=== PATIENT | male | born 1975 | race Caucasian/White ===

== ENCOUNTER 2017-07-25 23:32 | Emergency (ER) | payer OTHER, MEDICAID ==
[~2017-07-25] VITALS: Ht 177.8 cm; Wt 100.0 kg
[~2017-07-25 23:32] MED LIST: ALBU8HFA IH; QUET300T2
[2017-07-26 02:19] VITALS: BP 124/76
== END 2017-07-26 02:22 | disposition home or self-care (01) ==
LOC: EMS 23:33
DX: T14.8 Other injury of unspecified body region (principal); B86 Scabies; J45.909 Unspecified asthma, uncomplicated; F17.210 Nicotine dependence, cigarettes, uncomplicated; W57.XXXA Bitten or stung by nonvenomous insect and other nonvenomous arthropods, initial encounter; Y93.89 Activity, other specified; Y92.89 Other specified places as the place of occurrence of the external cause; Y99.8 Other external cause status
CPT/HCPCS: 99282

== ENCOUNTER 2017-09-09 10:29 | Emergency (ER) | payer OTHER ==
[~2017-09-09] VITALS: Ht 167.6 cm; Wt 90.9 kg
[~2017-09-09 10:29] MED LIST changes: -QUET300T2; +QUET300T2 PO
[2017-09-09] MEDS ORDERED: LITH300CRT PO (10:34)
[2017-09-09] MEDS ORDERED: CefTRIAXone SODIUM 1 GM/VIAL IM ONE (11:00)
[2017-09-09] MEDS ORDERED: LIDOCAINE HCL/PF 1% 2 ML VIAL IM ONE (11:00)
[2017-09-09 12:23] VITALS: BP 147/83
== END 2017-09-09 12:30 | disposition home or self-care (01) ==
LOC: EMS 10:30
DX: L03.211 Cellulitis of face (principal); L02.01 Cutaneous abscess of face; J45.909 Unspecified asthma, uncomplicated; F17.210 Nicotine dependence, cigarettes, uncomplicated
CPT/HCPCS: 96372; 99283; J0696; J3490

== ENCOUNTER 2020-03-23 02:22 | Emergency (ER) | payer OTHER ==
[~2020-03-23 02:22] MED LIST changes: +LITH300CRT PO
== END 2020-03-23 03:19 | disposition left against medical advice (07) ==
LOC: EMS 02:22
DX: M79.672 Pain in left foot (principal); M79.671 Pain in right foot; Z53.21 Procedure and treatment not carried out due to patient leaving prior to being seen by health care provider

== ENCOUNTER 2020-12-23 18:54 | Emergency (ER) | payer OTHER ==
[~2020-12-23] VITALS: Ht 177.8 cm; Wt 127.3 kg
[2020-12-23] MEDS ORDERED: SERT-158 PO (19:01)
[2020-12-23 21:46] LABS: BASOPHILS % (AUTO) 0.7 % (0.0-2.0); EOSINOPHILS % (AUTO) 3.9 % (1.0-6.0); HEMATOCRIT 41.6 % (41-53); HEMOGLOBIN 13.9 g/dL (13.5-17.5); LYMPHOCYTES # (AUTO) 1.1 K/uL (1.0-4.8); LYMPHOCYTES % (AUTO) 21.4 % (22.0-44.0); MEAN CORPUSCULAR HEMOGLOBIN 31.1 pg (26.0-34.0); MEAN CORPUSCULAR HGB CONC 33.3 G/dL (31.0-37.0); MEAN CORPUSCULAR VOLUME 93 fL (80-100); MONOCYTES # (AUTO) 0.5 K/uL (0.1-1.0); MONOCYTES % (AUTO) 9.4 % (2.0-9.0); NEUTROPHILS # (AUTO) 3.2 K/uL (1.8-7.7); NEUTROPHILS % (AUTO) 64.6 % (40.0-70.0); RED BLOOD CELL COUNT(AUTO) 4.46 MIL/uL (4.50-5.90); RED CELL DISTRIBUTION WIDTH 14.6 % (11.5-14.5)
[2020-12-23 21:54] LABS: ANION GAP 8 mmol/L (8-16); CALCIUM, TOTAL 9.6 mg/dL (8.8-10.5); CARBON DIOXIDE 29 mmol/L (22-29); CHLORIDE 105 mmol/L (98-107); CREATININE 0.65 mg/dL (0.60-1.30); GLOMERULAR FILTR. RATE CALC > 60 mL/min (>60); GLUCOSE,RANDOM 98 mg/dL (70-110); POTASSIUM 4.1 mmol/L (3.5-5.1); SODIUM SERUM 142 mmol/L (136-145); UREA NITROGEN, BLOOD 8 mg/dL (7-18)
[2020-12-23 22:00] LABS: ALANINE AMINOTRANSFERASE 113 U/L (12-78); ALBUMIN 3.5 g/dL (3.4-5.0); ALKALINE PHOSPHATASE 100 U/L (46-116); ASPARTATE AMINOTRANSFERASE 170 U/L (15-37); BILIRUBIN,TOTAL 0.7 mg/dL (0.1-1.0); LIPASE 360 U/L (73-393); TOTAL PROTEIN, SERUM 7.7 g/dL (6.4-8.2)
[2020-12-23 22:28] LABS: AMPHET/METH SCREEN,URINE POSITIVE (NEGATIVE); APPEARANCE,URINE CLEAR (CLEAR); BARBITURATE SCREEN, URINE NEGATIVE (NEGATIVE); BENZODIAZEPINES SCREEN,URINE NEGATIVE (NEGATIVE); BILIRUBIN,URINE NEGATIVE (NEGATIVE); CANNABINOID SCREEN,URINE NEGATIVE (NEGATIVE); COCAINE SCREEN,URINE NEGATIVE (NEGATIVE); GLUCOSE, URINE (UA) NEGATIVE (NEGATIVE); KETONES,URINE NEGATIVE (NEGATIVE); LEUKOCYTE ESTERASE ,URINE NEGATIVE (NEGATIVE); METHADONE SCREEN, URINE NEGATIVE (NEGATIVE); NITRATE,URINE NEGATIVE (NEGATIVE); OCCULT BLOOD,URINE NEGATIVE (NEGATIVE); OPIATE SCREEN,URINE NEGATIVE (NEGATIVE); PROTEIN,URINE NEGATIVE (NEGATIVE); UROBILINOGEN,URINE 0.2 mg/dL (<=1.0)
[2020-12-23 22:31] LABS: PHENCYCLIDINE SCREEN,URINE NEGATIVE (NEGATIVE)
[2020-12-23 22:40] VITALS: BP 140/70
[2020-12-23 22:40] LABS: PLATELET COUNT (AUTO) 86 K/uL (150-450)
[2020-12-23 22:43] LABS: LITHIUM < 0.20 mmol/L (0.60-1.20)
== END 2020-12-23 22:50 | disposition home or self-care (01) ==
LOC: EMS 18:54
DX: M79.10 Myalgia, unspecified site (principal); R11.2 Nausea with vomiting, unspecified; R74.8 Abnormal levels of other serum enzymes; R19.7 Diarrhea, unspecified; F41.9 Anxiety disorder, unspecified; J45.909 Unspecified asthma, uncomplicated; F17.210 Nicotine dependence, cigarettes, uncomplicated; F12.90 Cannabis use, unspecified, uncomplicated; F19.90 Other psychoactive substance use, unspecified, uncomplicated
CPT/HCPCS: 99283

== ENCOUNTER 2021-10-05 03:28 | Emergency (ER) | payer OTHER ==
[~2021-10-05] VITALS: Ht 175.3 cm; Wt 108.6 kg
[~2021-10-05 03:28] MED LIST changes: +SERT-158 PO
[2021-10-05] MEDS ORDERED: LORazepam 1 MG TABLET PO ONE (03:45)
[2021-10-05] MEDS ORDERED: DiphenhydrAMINE HCL 50 MG CAPSULE PO ONE (03:45)
[2021-10-05 04:12] LABS: COVID AG,FIA SOURCE NASOPHARYNGEAL
[2021-10-05] MEDS ORDERED: ALBUTEROL SULFATE HFA 90 MCG/PUFF 8 GM INHALER IH ONE (04:15)
[2021-10-05 05:17] VITALS: BP 157/94
== END 2021-10-05 05:19 | disposition home or self-care (01) ==
LOC: EMS 03:28
DX: J45.909 Unspecified asthma, uncomplicated (principal); R20.2 Paresthesia of skin; F15.10 Other stimulant abuse, uncomplicated; F32.9 Major depressive disorder, single episode, unspecified; Z79.899 Other long term (current) drug therapy; Z20.822 Contact with and (suspected) exposure to COVID-19
CPT/HCPCS: 71045; 94640; 99284; J3535

== ENCOUNTER 2021-11-26 19:00 | Inpatient (IN) | payer MEDICARE, MEDICAID ==
[~2021-11-26] VITALS: Ht 175.3 cm; Wt 101.9 kg
[2021-11-27 00:29] LABS: ANION GAP 10 mmol/L (8-16); CALCIUM, TOTAL 9.2 mg/dL (8.8-10.5); CARBON DIOXIDE 27 mmol/L (22-29); CHLORIDE 105 mmol/L (98-107); CREATININE 0.67 mg/dL (0.60-1.30); GLOMERULAR FILTR. RATE CALC > 60 mL/min (>60); GLUCOSE,RANDOM 103 mg/dL (70-110); POTASSIUM 3.6 mmol/L (3.5-5.1); SODIUM SERUM 142 mmol/L (136-145); UREA NITROGEN, BLOOD 5 mg/dL (7-18)
[2021-11-27 00:42] LABS: ALANINE AMINOTRANSFERASE 61 U/L (12-78); ALBUMIN 3.5 g/dL (3.4-5.0); ALKALINE PHOSPHATASE 145 U/L (46-116); ASPARTATE AMINOTRANSFERASE 99 U/L (15-37); BILIRUBIN,TOTAL 0.8 mg/dL (0.1-1.0); TOTAL PROTEIN, SERUM 8.1 g/dL (6.4-8.2)
[2021-11-27 00:43] LABS: ACETAMINOPHEN < 2 mcg/mL (10-30)
[2021-11-27 00:46] LABS: LITHIUM < 0.20 mmol/L (0.60-1.20)
[2021-11-27 00:52] LABS: SALICYLATE 2.8 mg/dL (2.8-20.0)
[2021-11-27 01:25] LABS: COVID AG,FIA SOURCE NASOPHARYNGEAL
[2021-11-27 01:56] LABS: BASOPHILS % (AUTO) 0.7 % (0.0-2.0); EOSINOPHILS % (AUTO) 1.4 % (1.0-6.0); HEMATOCRIT 43.8 % (41-53); HEMOGLOBIN 14.9 g/dL (13.5-17.5); LYMPHOCYTES # (AUTO) 1.8 K/uL (1.0-4.8); LYMPHOCYTES % (AUTO) 51.4 % (22.0-44.0); MEAN CORPUSCULAR HEMOGLOBIN 30.6 pg (26.0-34.0); MEAN CORPUSCULAR VOLUME 90 fL (80-100); MONOCYTES # (AUTO) 0.3 K/uL (0.1-1.0); MONOCYTES % (AUTO) 8.3 % (2.0-9.0); NEUTROPHILS # (AUTO) 1.3 K/uL (1.8-7.7); NEUTROPHILS % (AUTO) 38.2 % (40.0-70.0); RED BLOOD CELL COUNT(AUTO) 4.85 MIL/uL (4.50-5.90); RED CELL DISTRIBUTION WIDTH 14.3 % (11.5-14.5)
[2021-11-27 02:39] LABS: PLATELET COUNT (AUTO) 89 K/uL (150-450)
[2021-11-27 22:06] LABS: AMPHET/METH SCREEN,URINE POSITIVE (NEGATIVE); BARBITURATE SCREEN, URINE NEGATIVE (NEGATIVE); BENZODIAZEPINES SCREEN,URINE NEGATIVE (NEGATIVE); CANNABINOID SCREEN,URINE POSITIVE (NEGATIVE); COCAINE SCREEN,URINE NEGATIVE (NEGATIVE); METHADONE SCREEN, URINE NEGATIVE (NEGATIVE); OPIATE SCREEN,URINE NEGATIVE (NEGATIVE)
[2021-11-27 22:28] LABS: PHENCYCLIDINE SCREEN,URINE NEGATIVE (NEGATIVE)
[2021-11-28 01:17] LABS: CHOL/HDL RATIO 2.8 (4.2-7.3); CHOLESTEROL 167 mg/dL (131-200); HDL CHOLESTEROL 59 mg/dL (40-60); LDL CHOL (CALC.) 85 mg/dL (0-130); TRIGLYCERIDES 115 mg/dL (15-150)
[2021-11-28] MEDS: HALOPERIDOL 5 MG TABLET PO PRN (19:11)
[2021-11-28] MEDS: ZOLPIDEM TARTRATE 10 MG TABLET PO PRN (19:11)
[2021-11-28] MEDS: LORazepam 2 MG TABLET PO PRN (19:11)
[2021-11-29 13:07] VITALS: BP 118/78
[2021-11-29] MEDS ORDERED: INFLUENZA VIRUS VACCINE QVS 2021-22 (6MO+)/PF 60 MCG/0.5 ML SYRINGE IM. ONE (13:45)
[2021-11-29 16:00] VITALS: BP 107/66
[2021-11-29] MEDS: HALOPERIDOL 5 MG TABLET PO PRN (19:38)
[2021-11-29] MEDS: ZOLPIDEM TARTRATE 10 MG TABLET PO PRN (20:38)
[2021-11-29] MEDS: QUEtiapine FUMARATE 200 MG TABLET PO SCH (22:06)
[2021-11-29] MEDS ORDERED: BACITRACIN 28 GM OINTMENT TP PRN (22:30)
[2021-11-29] MEDS ORDERED: DOCUSATE SODIUM 100 MG CAPSULE PO PRN (22:30)
[2021-11-29] MEDS ORDERED: MAG HYDROX/AL HYDROX/SIMETH ES 30 ML SUSPENSION UDCUP PO PRN (22:30)
[2021-11-29] MEDS ORDERED: ONDANSETRON HCL 4 MG TABLET PO PRN (22:30)
[2021-11-29] MEDS ORDERED: OMEPRAZOLE 20 MG CAPSULE PO PRN (22:30)
[2021-11-29] MEDS ORDERED: ALBUTEROL SULFATE HFA 90 MCG/PUFF 8 GM INHALER IH PRN (22:30)
[2021-11-29] MEDS ORDERED: PETROLATUM,WHITE 28 GM JELLY TP PRN (22:30)
[2021-11-29] MEDS ORDERED: BENZOCAINE/MENTHOL LOZENGE PO PRN (22:30)
[2021-11-29] MEDS ORDERED: CloNIDine HCL 0.1 MG TABLET PO PRN (22:30)
[2021-11-29] MEDS ORDERED: MAGNESIUM HYDROXIDE SUSPENSION 30 ML UDCUP PO PRN (22:30)
[2021-11-30] MEDS: QUEtiapine FUMARATE 200 MG TABLET PO SCH ×2 (08:42→16:35)
[2021-11-30 11:17] VITALS: BP 90/43
[2021-11-30 16:44] VITALS: BP 104/74
[2021-12-01 02:09] VITALS: BP 114/79
[2021-12-01] MEDS: ZOLPIDEM TARTRATE 10 MG TABLET PO PRN ×2 (02:09→20:55)
[2021-12-01] MEDS: QUEtiapine FUMARATE 200 MG TABLET PO SCH ×2 (08:32→17:27)
[2021-12-01 09:32] VITALS: BP 110/60
[2021-12-01 17:44] VITALS: BP 118/72
[2021-12-02 02:32] VITALS: BP 121/77
[2021-12-02 08:07] VITALS: BP 117/74
[2021-12-02] MEDS: QUEtiapine FUMARATE 200 MG TABLET PO SCH ×2 (08:32→16:18)
[2021-12-02 17:00] VITALS: BP 111/79
[2021-12-02] MEDS: ZOLPIDEM TARTRATE 10 MG TABLET PO PRN (22:53)
[2021-12-03] MEDS: QUEtiapine FUMARATE 200 MG TABLET PO SCH ×2 (08:24→16:04)
[2021-12-03 09:00] VITALS: BP 136/62
[2021-12-03 16:24] VITALS: BP 116/69
[2021-12-03 17:40] LABS: COVID AG,FIA SOURCE NASAL SWAB
[2021-12-03] MEDS: ZOLPIDEM TARTRATE 10 MG TABLET PO PRN (21:55)
[2021-12-03] MEDS: ACETAMINOPHEN 325 MG TABLET PO PRN (21:58)
[2021-12-04 08:15] VITALS: BP 119/66
[2021-12-04] MEDS: QUEtiapine FUMARATE 200 MG TABLET PO SCH ×2 (08:25→16:26)
[2021-12-04 16:48] VITALS: BP 109/70
[2021-12-04] MEDS: ZOLPIDEM TARTRATE 10 MG TABLET PO PRN (22:19)
[2021-12-04 22:20] VITALS: BP 112/68
[2021-12-04] MEDS: ACETAMINOPHEN 325 MG TABLET PO PRN (22:20)
[2021-12-04 23:20] VITALS: BP 115/70
[2021-12-05] MEDS: QUEtiapine FUMARATE 200 MG TABLET PO SCH ×2 (08:55→16:47)
[2021-12-05 09:00] VITALS: BP 123/72
[2021-12-05 14:35] VITALS: BP 128/72
[2021-12-05] MEDS: ACETAMINOPHEN 325 MG TABLET PO PRN ×2 (14:35→19:58)
[2021-12-05 16:00] VITALS: BP 122/74
[2021-12-05] MEDS: ZOLPIDEM TARTRATE 10 MG TABLET PO PRN (22:46)
[2021-12-06 00:30] VITALS: BP 107/68
[2021-12-06 08:03] VITALS: BP 109/58
[2021-12-06] MEDS: QUEtiapine FUMARATE 200 MG TABLET PO SCH ×2 (08:12→17:17)
[2021-12-06 17:55] VITALS: BP 140/75
[2021-12-06] MEDS: ZOLPIDEM TARTRATE 10 MG TABLET PO PRN (20:34)
[2021-12-07 02:28] VITALS: BP 110/62
[2021-12-07 03:34] VITALS: BP 121/64
[2021-12-07] MEDS: LORazepam 2 MG TABLET PO PRN (03:34)
[2021-12-07] MEDS: HALOPERIDOL 5 MG TABLET PO PRN (03:34)
[2021-12-07] MEDS: QUEtiapine FUMARATE 200 MG TABLET PO SCH (08:34)
[2021-12-07 11:38] VITALS: BP 105/56
[2021-12-07 16:00] VITALS: BP 105/63
[2021-12-07] MEDS ORDERED: QUEtiapine FUMARATE 200 MG TABLET PO SCH (21:00)
[2021-12-08 00:15] VITALS: BP 119/60
[2021-12-08] MEDS: LOPERAMIDE HCL 2 MG CAPSULE PO PRN ×2 (07:54→10:30)
[2021-12-08 09:00] VITALS: BP 106/60
[2021-12-08 17:00] VITALS: BP 131/77
[2021-12-08] MEDS: QUEtiapine FUMARATE 200 MG TABLET PO SCH (19:59)
[2021-12-08 23:47] LABS: COVID AG,FIA SOURCE NASAL SWAB
[2021-12-09 01:00] VITALS: BP 135/78
[2021-12-09] MEDS: IBUPROFEN 600 MG TABLET PO PRN ×2 (09:03→19:28)
[2021-12-09 09:06] VITALS: BP 109/55
[2021-12-09 10:04] VITALS: BP 114/63
[2021-12-09 16:46] VITALS: BP 111/76
[2021-12-09 19:28] VITALS: BP 137/76
[2021-12-09] MEDS: HALOPERIDOL 5 MG TABLET PO PRN (19:28)
[2021-12-09] MEDS: QUEtiapine FUMARATE 200 MG TABLET PO SCH (20:36)
[2021-12-10 02:32] VITALS: BP 145/80
[2021-12-10 08:00] VITALS: BP 107/60
[2021-12-10] MEDS: LORazepam 2 MG TABLET PO PRN (16:15)
[2021-12-10 16:28] VITALS: BP 98/60
[2021-12-10] MEDS: QUEtiapine FUMARATE 200 MG TABLET PO SCH (20:21)
[2021-12-10] MEDS: HALOPERIDOL 5 MG TABLET PO PRN (20:22)
[2021-12-11 10:45] VITALS: BP 145/68
[2021-12-11 16:32] VITALS: BP 140/91
[2021-12-11] MEDS: QUEtiapine FUMARATE 200 MG TABLET PO SCH (20:15)
[2021-12-11] MEDS: HALOPERIDOL 5 MG TABLET PO PRN (20:15)
[2021-12-12 08:02] VITALS: BP 111/67
[2021-12-12 13:50] VITALS: BP 122/72
[2021-12-12] MEDS: IBUPROFEN 600 MG TABLET PO PRN (13:50)
[2021-12-12 16:00] VITALS: BP 115/67
[2021-12-12] MEDS: LORazepam 2 MG TABLET PO PRN (19:30)
[2021-12-12] MEDS: QUEtiapine FUMARATE 200 MG TABLET PO SCH (20:16)
[2021-12-12] MEDS: HALOPERIDOL 5 MG TABLET PO PRN (20:16)
[2021-12-13 09:30] VITALS: BP 106/58
[2021-12-13] MEDS: IBUPROFEN 600 MG TABLET PO PRN (14:31)
[2021-12-13] MEDS: LORazepam 2 MG TABLET PO PRN ×2 (14:31→20:22)
[2021-12-13 14:33] VITALS: BP 110/76
[2021-12-13 16:44] VITALS: BP 102/72
[2021-12-13] MEDS: QUEtiapine FUMARATE 200 MG TABLET PO SCH (20:15)
[2021-12-13] MEDS: HALOPERIDOL 5 MG TABLET PO PRN (20:23)
[2021-12-14 08:02] VITALS: BP 96/55
[2021-12-14 16:00] VITALS: BP 121/70
[2021-12-14] MEDS: LORazepam 2 MG TABLET PO PRN ×2 (16:16→20:11)
[2021-12-14] MEDS: QUEtiapine FUMARATE 200 MG TABLET PO SCH (20:11)
[2021-12-14] MEDS: HALOPERIDOL 5 MG TABLET PO PRN (20:13)
[2021-12-15 09:20] VITALS: BP 99/54
[2021-12-15] MEDS: HALOPERIDOL 5 MG TABLET PO PRN ×2 (12:54→19:44)
[2021-12-15 16:34] VITALS: BP 105/72
[2021-12-15] MEDS: IBUPROFEN 600 MG TABLET PO PRN (17:18)
[2021-12-15] MEDS: LORazepam 2 MG TABLET PO PRN (19:44)
[2021-12-15] MEDS: ACETAMINOPHEN 325 MG TABLET PO PRN (19:44)
[2021-12-15] MEDS ORDERED: BENZOCAINE 10% 7 GM GEL TP PRN (20:00)
[2021-12-15] MEDS: QUEtiapine FUMARATE 200 MG TABLET PO SCH (20:04)
[2021-12-15] MEDS: MAGNESIUM SULFATE 454 GM BOX PO SCH (20:28)
[2021-12-16 05:20] VITALS: BP 127/85
[2021-12-16] MEDS: IBUPROFEN 600 MG TABLET PO PRN (05:23)
[2021-12-16 08:00] VITALS: BP 115/57
[2021-12-16] MEDS: MAGNESIUM SULFATE 454 GM BOX PO SCH ×2 (09:32→12:35)
[2021-12-16 10:47] LABS: COVID AG,FIA SOURCE NASOPHARYNGEAL
[2021-12-16] MEDS ORDERED: QUET200T30 PO (13:04)
== END 2021-12-16 15:00 | disposition home or self-care (01) | DRG 885 ==
LOC: EMS 19:05 → 3EX 11-29 12:24 → 3EI 12-13 11:19
PROVIDERS: ADMIT Psychiatry & Neurology Psychiatry; ATTEND Psychiatry & Neurology Psychiatry
DX: F32.2 Major depressive disorder, single episode, severe without psychotic features (principal); R45.851 Suicidal ideations; F25.9 Schizoaffective disorder, unspecified; F15.10 Other stimulant abuse, uncomplicated; Z20.822 Contact with and (suspected) exposure to COVID-19; T50.902A Poisoning by unspecified drugs, medicaments and biological substances, intentional self-harm, initial encounter; F10.10 Alcohol abuse, uncomplicated; G47.00 Insomnia, unspecified; K59.00 Constipation, unspecified; E78.5 Hyperlipidemia, unspecified; I10 Essential (primary) hypertension; J44.9 Chronic obstructive pulmonary disease, unspecified; F41.9 Anxiety disorder, unspecified; Z79.899 Other long term (current) drug therapy; Y92.89 Other specified places as the place of occurrence of the external cause; Z71.51 Drug abuse counseling and surveillance of drug abuser; Z71.6 Tobacco abuse counseling; Z72.0 Tobacco use
CPT/HCPCS: 80053; 80061; 80178; 83735; 85025; 87081; 99285; G0378; G0480; G0481; J3535

== ENCOUNTER 2022-02-14 15:39 | Inpatient (IN) | payer MEDICARE, MEDICAID ==
[~2022-02-14] VITALS: Ht 175.3 cm; Wt 105.2 kg
[~2022-02-14 15:39] MED LIST changes: -ALBU8HFA IH; -LITH300CRT PO; +QUET200T30 PO; -QUET300T2 PO; -SERT-158 PO
[2022-02-14] MEDS ORDERED: LORazepam 2 MG TABLET PO PRN (17:30)
[2022-02-14] MEDS ORDERED: OLANZapine 5 MG RAPDIS TABLET PO PRN (17:30)
[2022-02-14] MEDS ORDERED: ZOLPIDEM TARTRATE 10 MG TABLET PO PRN (17:30)
[2022-02-14 17:53] LABS: BASOPHILS % (AUTO) 0.5 % (0.0-2.0); EOSINOPHILS % (AUTO) 1.1 % (1.0-6.0); HEMATOCRIT 44.4 % (41-53); HEMOGLOBIN 15.1 g/dL (13.5-17.5); LYMPHOCYTES % (AUTO) 42.9 % (22.0-44.0); MEAN CORPUSCULAR HEMOGLOBIN 29.9 pg (26.0-34.0); MEAN CORPUSCULAR HGB CONC 34.1 G/dL (31.0-37.0); MEAN CORPUSCULAR VOLUME 88 fL (80-100); MONOCYTES # (AUTO) 0.4 K/uL (0.1-1.0); MONOCYTES % (AUTO) 6.3 % (2.0-9.0); NEUTROPHILS # (AUTO) 3.4 K/uL (1.8-7.7); NEUTROPHILS % (AUTO) 49.2 % (40.0-70.0); PLATELET COUNT (AUTO) 101 K/uL (150-450); RED BLOOD CELL COUNT(AUTO) 5.06 MIL/uL (4.50-5.90); RED CELL DISTRIBUTION WIDTH 15.9 % (11.5-14.5)
[2022-02-14 17:56] LABS: COVID AG,FIA SOURCE NASAL SWAB
[2022-02-14 18:10] LABS: ANION GAP 9 mmol/L (8-16); CARBON DIOXIDE 31 mmol/L (22-29); CHLORIDE 103 mmol/L (98-107); CREATININE 0.67 mg/dL (0.60-1.30); GLOMERULAR FILTR. RATE CALC > 60 mL/min (>60); GLUCOSE,RANDOM 108 mg/dL (70-110); POTASSIUM 3.6 mmol/L (3.5-5.1); SODIUM SERUM 143 mmol/L (136-145); UREA NITROGEN, BLOOD 8 mg/dL (7-18)
[2022-02-14 18:16] LABS: ALANINE AMINOTRANSFERASE 62 U/L (12-78); ALBUMIN 4.2 g/dL (3.4-5.0); ALKALINE PHOSPHATASE 146 U/L (46-116); ASPARTATE AMINOTRANSFERASE 106 U/L (15-37); BILIRUBIN,TOTAL 0.9 mg/dL (0.1-1.0)
[2022-02-15] VITALS (8 sets, daily range): BP systolic 123–154; BP diastolic 41–83
[2022-02-15] MEDS ORDERED: SODIUM CHLORIDE 0.9% 1,000 ML IV ONE (04:30)
[2022-02-15] MEDS ORDERED: HydrOXYzine PAMOATE 50 MG CAPSULE PO PRN (09:15)
[2022-02-15] MEDS ORDERED: ACETAMINOPHEN 325 MG TABLET PO PRN (09:15)
[2022-02-15] MEDS ORDERED: PROMETHAZINE HCL 25 MG TABLET PO PRN (09:15)
[2022-02-15] MEDS ORDERED: MAGNESIUM HYDROXIDE SUSPENSION 30 ML UDCUP PO PRN (09:15)
[2022-02-15] MEDS ORDERED: LORazepam 2 MG TABLET PO ONE (09:15)
[2022-02-15] MEDS ORDERED: QUEtiapine FUMARATE 100 MG TABLET PO PRN (09:15)
[2022-02-15] MEDS ORDERED: LOPERAMIDE HCL 2 MG CAPSULE PO PRN ×2 (09:15)
[2022-02-15] MEDS ORDERED: MAG HYDROX/AL HYDROX/SIMETH ES 30 ML SUSPENSION UDCUP PO PRN (09:15)
[2022-02-15] MEDS ORDERED: GuaiFENesin/D-METHORPHAN [SUGAR-FREE] 200-20MG/10 ML SYRUP UDCUP PO PRN (09:15)
[2022-02-15] MEDS ORDERED: TUBERCULIN, PURIFIED PROTEIN DERIVATIVE 5 TU/0.1 ML SYRINGE ID ONE (09:15)
[2022-02-15] MEDS ORDERED: CYANOCOBALAMIN 1,000 MCG/ML VIAL IM ONE (09:15)
[2022-02-15] MEDS ORDERED: LORazepam 2 MG TABLET PO PRN (09:15)
[2022-02-15] MEDS: THIAMINE 100 MG TABLET PO SCH (16:14)
[2022-02-15] MEDS: QUEtiapine FUMARATE 100 MG TABLET PO SCH (20:11)
[2022-02-15] MEDS: MELATONIN 5 MG TABLET PO SCH (20:11)
[2022-02-16] MEDS ORDERED: LORazepam 2 MG TABLET PO PRN (07:00)
[2022-02-16 07:41] LABS: CHOL/HDL RATIO 2.3 (4.2-7.3); FREE T4 (FREE THYROXINE) 0.7 ng/dL (0.76-1.46); THYROID STIMULATING HORMONE 0.5 uIU/mL (0.36-3.74)
[2022-02-16 07:44] LABS: HEMOGLOBIN A1C 5.3 % (3.8-5.6)
[2022-02-16 08:07] LABS: HEPATITIS C AB (EIA) <0.1 s/co ratio (0.0-0.9)
[2022-02-16 09:00] VITALS: BP 137/101
[2022-02-16] MEDS: MULTIVITAMINS WITH MINERALS, THERAPEUTIC TABLET PO SCH (09:57)
[2022-02-16] MEDS: LORazepam 2 MG TABLET PO SCH ×4 (09:58→20:46)
[2022-02-16] MEDS: THIAMINE 100 MG TABLET PO SCH ×2 (09:58→16:19)
[2022-02-16] MEDS: OMEGA-3/DHA/EPA/FISH OIL 1,000 MG CAPSULE PO SCH (09:58)
[2022-02-16] MEDS: FOLIC ACID 1 MG TABLET PO SCH (09:59)
[2022-02-16] MEDS: NALTREXONE HCL 50 MG TABLET PO SCH (09:59)
[2022-02-16 11:35] VITALS: BP 134/75
[2022-02-16 13:12] VITALS: BP 134/75
[2022-02-16 13:18] VITALS: BP 134/73
[2022-02-16] MEDS ORDERED: CloNIDine HCL 0.1 MG TABLET PO PRN (13:30)
[2022-02-16 17:20] VITALS: BP 119/70
[2022-02-16] MEDS: MELATONIN 5 MG TABLET PO SCH (20:45)
[2022-02-16] MEDS: QUEtiapine FUMARATE 100 MG TABLET PO SCH (20:46)
[2022-02-16 21:39] VITALS: BP 117/61
[2022-02-17] MEDS: MULTIVITAMINS WITH MINERALS, THERAPEUTIC TABLET PO SCH (08:47)
[2022-02-17] MEDS: OMEGA-3/DHA/EPA/FISH OIL 1,000 MG CAPSULE PO SCH (08:47)
[2022-02-17] MEDS: LORazepam 2 MG TABLET PO SCH ×4 (08:47→20:27)
[2022-02-17] MEDS: NALTREXONE HCL 50 MG TABLET PO SCH (08:48)
[2022-02-17] MEDS: FOLIC ACID 1 MG TABLET PO SCH (08:48)
[2022-02-17 08:53] VITALS: BP 114/70
[2022-02-17] MEDS ORDERED: DULoxetine HCL 20 MG CAPSULE PO SCH (09:00)
[2022-02-17 09:14] VITALS: BP 114/70
[2022-02-17] MEDS: THIAMINE 100 MG TABLET PO SCH ×2 (09:31→16:19)
[2022-02-17 13:14] VITALS: BP 120/76
[2022-02-17 16:09] VITALS: BP 143/76
[2022-02-17] MEDS ORDERED: NALT50TA PO (16:13)
[2022-02-17] MEDS ORDERED: MELA5TAB40 PO (16:13)
[2022-02-17] MEDS ORDERED: QUET100T34 PO (16:13)
[2022-02-17] MEDS ORDERED: DULO20CA71 PO (16:13)
[2022-02-17] MEDS ORDERED: OMEG-108 PO (16:13)
[2022-02-17 17:15] VITALS: BP 143/76
[2022-02-17 20:26] VITALS: BP 146/95
[2022-02-17] MEDS: QUEtiapine FUMARATE 100 MG TABLET PO SCH (20:27)
[2022-02-17] MEDS: MELATONIN 5 MG TABLET PO SCH (20:27)
[2022-02-18] MEDS ORDERED: LORazepam 1 MG TABLET PO PRN (07:00)
[2022-02-18] MEDS: OMEGA-3/DHA/EPA/FISH OIL 1,000 MG CAPSULE PO SCH (08:22)
[2022-02-18] MEDS: NALTREXONE HCL 50 MG TABLET PO SCH (08:22)
[2022-02-18] MEDS: MULTIVITAMINS WITH MINERALS, THERAPEUTIC TABLET PO SCH (08:23)
[2022-02-18] MEDS: FOLIC ACID 1 MG TABLET PO SCH (08:23)
[2022-02-18] MEDS: THIAMINE 100 MG TABLET PO SCH (08:23)
[2022-02-18] MEDS: LORazepam 1 MG TABLET PO SCH ×2 (08:24→12:25)
[2022-02-18 08:30] VITALS: BP 117/70
[2022-02-18 09:00] VITALS: BP 117/70
[2022-02-18] MEDS ORDERED: DULoxetine HCL 30 MG CAPSULE PO SCH (09:00)
[2022-02-19] MEDS ORDERED: LORazepam 1 MG TABLET PO PRN (07:00)
== END 2022-02-18 15:15 | disposition home or self-care (01) | DRG 885 ==
LOC: EMS 15:39 → 3EX 02-15 06:23
PROVIDERS: ADMIT Psychiatry & Neurology Psychiatry; ATTEND Psychiatry & Neurology Psychiatry
DX: F32.2 Major depressive disorder, single episode, severe without psychotic features (principal); R45.851 Suicidal ideations; Z20.822 Contact with and (suspected) exposure to COVID-19; E11.9 Type 2 diabetes mellitus without complications; E78.00 Pure hypercholesterolemia, unspecified; E78.5 Hyperlipidemia, unspecified; F10.10 Alcohol abuse, uncomplicated; F20.9 Schizophrenia, unspecified; I10 Essential (primary) hypertension; F17.210 Nicotine dependence, cigarettes, uncomplicated; J44.9 Chronic obstructive pulmonary disease, unspecified; K70.10 Alcoholic hepatitis without ascites; Y90.8 Blood alcohol level of 240 mg/100 ml or more; Z55.9 Problems related to education and literacy, unspecified; Z59.9 Problem related to housing and economic circumstances, unspecified; Z63.9 Problem related to primary support group, unspecified; Z65.3 Problems related to other legal circumstances; Z91.14 Patient's other noncompliance with medication regimen
CPT/HCPCS: 80053; 80061; 80074; 83036; 84439; 84443; 85025; 86592; 93005; 99285; G0378; G0480; J3420; Q9967

== ENCOUNTER 2023-04-28 01:21 | Emergency (ER) | payer OTHER ==
[~2023-04-28] VITALS: Ht 175.3 cm; Wt 109.0 kg
[~2023-04-28 01:21] MED LIST changes: +DULO20CA71 PO; +MELA5TAB40 PO; +NALT50TA PO; +OMEG-135 PO; +QUET100T34 PO; -QUET200T30 PO
[2023-04-28] MEDS ORDERED: ALBU18HF12 IH (01:26)
[2023-04-28 01:28] VITALS: BP 162/84
[2023-04-28] MEDS ORDERED: LORazepam 1 MG TABLET PO ONE (02:45)
[2023-04-28] MEDS ORDERED: OLANZapine 5 MG TABLET PO ONE (02:45)
[2023-04-28 02:55] LABS: BASOPHILS % (AUTO) 0.3 % (0.0-2.0); EOSINOPHILS % (AUTO) 1.5 % (1.0-6.0); HEMATOCRIT 43.8 % (41-53); HEMOGLOBIN 14.5 g/dL (13.5-17.5); LYMPHOCYTES # (AUTO) 1.6 K/uL (1.0-4.8); LYMPHOCYTES % (AUTO) 34.1 % (22.0-44.0); MEAN CORPUSCULAR HEMOGLOBIN 30.4 pg (26.0-34.0); MEAN CORPUSCULAR HGB CONC 33.1 G/dL (31.0-37.0); MEAN CORPUSCULAR VOLUME 92 fL (80-100); MONOCYTES # (AUTO) 0.3 K/uL (0.1-1.0); MONOCYTES % (AUTO) 7.1 % (2.0-9.0); NEUTROPHILS # (AUTO) 2.7 K/uL (1.8-7.7); PLATELET COUNT (AUTO) 78 K/uL (150-450); RED BLOOD CELL COUNT(AUTO) 4.77 MIL/uL (4.50-5.90)
[2023-04-28 02:56] LABS: ANION GAP 6 mmol/L (8-16); CALCIUM, TOTAL 8.8 mg/dL (8.8-10.5); CARBON DIOXIDE 28 mmol/L (22-29); CHLORIDE 103 mmol/L (98-107); CREATININE 0.81 mg/dL (0.60-1.30); GLOMERULAR FILTR. RATE CALC > 60 mL/min (>60); GLUCOSE,RANDOM 104 mg/dL (70-110); POTASSIUM 4.1 mmol/L (3.5-5.1); SODIUM SERUM 137 mmol/L (136-145)
[2023-04-28 03:04] LABS: ALANINE AMINOTRANSFERASE 55 U/L (12-78); ALBUMIN 3.6 g/dL (3.4-5.0); ALKALINE PHOSPHATASE 95 U/L (46-116); ASPARTATE AMINOTRANSFERASE 69 U/L (15-37); BILIRUBIN,TOTAL 0.6 mg/dL (0.1-1.0); TOTAL PROTEIN, SERUM 7.9 g/dL (6.4-8.2)
[2023-04-28 03:05] LABS: COVID AG,FIA SOURCE NASAL SWAB
== END 2023-04-28 04:12 | disposition home or self-care (01) ==
LOC: EMS 01:21
DX: F41.9 Anxiety disorder, unspecified (principal); F32.A Depression, unspecified; F20.9 Schizophrenia, unspecified; F17.210 Nicotine dependence, cigarettes, uncomplicated; F12.90 Cannabis use, unspecified, uncomplicated; F15.90 Other stimulant use, unspecified, uncomplicated; Z20.822 Contact with and (suspected) exposure to COVID-19
CPT/HCPCS: 99283; 87426; 80053; 85025; 36415; G0480

== ENCOUNTER 2023-06-09 12:22 | Emergency (ER) | payer OTHER ==
[~2023-06-09] VITALS: Ht 175.3 cm; Wt 122.7 kg
[~2023-06-09 12:22] MED LIST changes: +ALBU18HF12 IH
[2023-06-09 12:25] VITALS: BP 141/83; PULSE 106; RESP 16; TEMP 98.1
[2023-06-10] MEDS ORDERED: DULO-114 PO (13:16)
== END 2023-06-09 13:56 | disposition left against medical advice (07) ==
LOC: EMS 12:22
DX: K92.0 Hematemesis (principal); Z53.21 Procedure and treatment not carried out due to patient leaving prior to being seen by health care provider
CPT/HCPCS: 99281; Z7502

== ENCOUNTER 2023-06-09 14:09 | Inpatient (IN) | payer MEDICARE, MEDICAID ==
[~2023-06-09] VITALS: Ht 175.3 cm; Wt 117.8 kg
[2023-06-09 15:15] LABS: BASOPHILS % (AUTO) 0.4 % (0.0-2.0); EOSINOPHILS % (AUTO) 3.2 % (1.0-6.0); HEMATOCRIT 37.4 % (41-53); HEMOGLOBIN 12.4 g/dL (13.5-17.5); LYMPHOCYTES # (AUTO) 1.6 K/uL (1.0-4.8); LYMPHOCYTES % (AUTO) 40.8 % (22.0-44.0); MEAN CORPUSCULAR HEMOGLOBIN 30.3 pg (26.0-34.0); MEAN CORPUSCULAR HGB CONC 33.2 G/dL (31.0-37.0); MEAN CORPUSCULAR VOLUME 91 fL (80-100); MONOCYTES # (AUTO) 0.3 K/uL (0.1-1.0); MONOCYTES % (AUTO) 8.7 % (2.0-9.0); NEUTROPHILS # (AUTO) 1.8 K/uL (1.8-7.7); NEUTROPHILS % (AUTO) 46.9 % (40.0-70.0); PLATELET COUNT (AUTO) 78 K/uL (150-450); RED BLOOD CELL COUNT(AUTO) 4.09 MIL/uL (4.50-5.90); RED CELL DISTRIBUTION WIDTH 13.9 % (11.5-14.5)
[2023-06-09 15:24] LABS: ANION GAP 7 mmol/L (8-16); CALCIUM, TOTAL 9.3 mg/dL (8.8-10.5); CARBON DIOXIDE 29 mmol/L (22-29); CHLORIDE 102 mmol/L (98-107); GLOMERULAR FILTR. RATE CALC > 60 mL/min (>60); GLUCOSE,RANDOM 110 mg/dL (70-110); POTASSIUM 3.8 mmol/L (3.5-5.1); SODIUM SERUM 138 mmol/L (136-145)
[2023-06-09 15:30] LABS: ALANINE AMINOTRANSFERASE 81 U/L (12-78); ALBUMIN 3.2 g/dL (3.4-5.0); ALKALINE PHOSPHATASE 90 U/L (46-116); ASPARTATE AMINOTRANSFERASE 109 U/L (15-37); BILIRUBIN,TOTAL 0.7 mg/dL (0.1-1.0); LIPASE 74 U/L (73-393); TOTAL PROTEIN, SERUM 7.1 g/dL (6.4-8.2)
[2023-06-09 15:43] LABS: B-TYPE NATRIURETIC PEPTIDE < 5 pg/mL (0-100)
[2023-06-09 16:56] LABS: LACTIC ACID 1.3 mmol/L (0.4-2.0)
[2023-06-09] MEDS ORDERED: IPRATROPIUM BROMIDE 0.5 MG/2.5 ML NEB SOLUTION NEB ONE (18:30)
[2023-06-09] MEDS ORDERED: ALBUTEROL SULFATE 2.5 MG/0.5 ML NEB SOLUTION NEB ONE (18:30)
[2023-06-09] MEDS ORDERED: GuaiFENesin/D-METHORPHAN [SUGAR-FREE] 200-20MG/10 ML SYRUP UDCUP PO ONE (18:30)
[2023-06-09] MEDS ORDERED: CEPHALEXIN MONOHYDRATE 500 MG CAPSULE PO ONE (18:30)
[2023-06-09] MEDS ORDERED: ACETAMINOPHEN 500 MG TABLET PO ONE (18:30)
[2023-06-09] MEDS ORDERED: LIDOCAINE 2% VISCOUS 15 ML SOLUTION UDCUP PO ONE (18:30)
[2023-06-09 19:00] VITALS: PULSE 73; RESP 16; RESP 18; O2SAT 96
[2023-06-09 19:15] VITALS: PULSE 66; RESP 18; O2SAT 99
[2023-06-09] MEDS ORDERED: HALOPERIDOL LACTATE 5 MG/ML VIAL IM ONE (21:00)
[2023-06-09] MEDS ORDERED: LORazepam 2 MG/ML VIAL IM ONE (21:00)
[2023-06-09] MEDS ORDERED: IVERMECTIN 3 MG TABLET PO ONE (21:00)
[2023-06-09] MEDS ORDERED: DiphenhydrAMINE HCL 50 MG/ML VIAL IM ONE (21:00)
[2023-06-09 21:42] LABS: COVID AG,FIA SOURCE NASAL SWAB
[2023-06-10 04:13] VITALS: RESP 20
[2023-06-10 09:06] VITALS: BP 146/89; PULSE 76; RESP 18; TEMP 98; O2SAT 95
[2023-06-10] MEDS ORDERED: MAGNESIUM HYDROXIDE SUSPENSION 30 ML UDCUP PO PRN (13:15)
[2023-06-10] MEDS ORDERED: ONDANSETRON HCL 4 MG TABLET PO PRN (13:15)
[2023-06-10] MEDS ORDERED: GuaiFENesin/D-METHORPHAN [SUGAR-FREE] 200-20MG/10 ML SYRUP UDCUP PO PRN (13:15)
[2023-06-10] MEDS ORDERED: NICOTINE 14 MG/24 HOUR PATCH TD PRN (13:15)
[2023-06-10] MEDS ORDERED: LOPERAMIDE HCL 2 MG CAPSULE PO PRN (13:15)
[2023-06-10] MEDS ORDERED: DOCUSATE SODIUM 100 MG CAPSULE PO PRN (13:15)
[2023-06-10] MEDS ORDERED: ALBUTEROL SULFATE HFA 90 MCG/PUFF 8 GM INHALER IH PRN (13:15)
[2023-06-10] MEDS ORDERED: PETROLATUM,WHITE 28 GM JELLY TP PRN (13:15)
[2023-06-10] MEDS ORDERED: MAG HYDROX/AL HYDROX/SIMETH ES 30 ML SUSPENSION UDCUP PO PRN (13:15)
[2023-06-10] MEDS ORDERED: IBUPROFEN 400 MG TABLET PO PRN (13:15)
[2023-06-10] MEDS ORDERED: CloNIDine HCL 0.1 MG TABLET PO PRN (13:15)
[2023-06-10] MEDS ORDERED: ACETAMINOPHEN 325 MG TABLET PO PRN (13:15)
[2023-06-10] MEDS ORDERED: DULO-114 PO (13:16)
[2023-06-10] MEDS: DULoxetine HCL 30 MG CAPSULE PO SCH (15:10)
[2023-06-10] MEDS: AZITHROMYCIN 500 MG TABLET PO SCH (15:11)
[2023-06-10 16:09] LABS: APPEARANCE,URINE TURBID (CLEAR); BILIRUBIN,URINE NEGATIVE (NEGATIVE); GLUCOSE, URINE (UA) NEGATIVE (NEGATIVE); KETONES,URINE NEGATIVE (NEGATIVE); LEUKOCYTE ESTERASE ,URINE NEGATIVE (NEGATIVE); NITRATE,URINE NEGATIVE (NEGATIVE); OCCULT BLOOD,URINE NEGATIVE (NEGATIVE); PH,URINE 7.5 (5.0-8.0); PROTEIN,URINE NEGATIVE (NEGATIVE); SPECIFIC GRAVITIY, URINE 1.012 (1.003-1.030); UROBILINOGEN,URINE <=1.0 mg/dL (<=1.0)
[2023-06-10 16:16] LABS: AMPHET/METH SCREEN,URINE POSITIVE (NEGATIVE); BARBITURATE SCREEN, URINE NEGATIVE (NEGATIVE); BENZODIAZEPINES SCREEN,URINE NEGATIVE (NEGATIVE); CANNABINOID SCREEN,URINE NEGATIVE (NEGATIVE); COCAINE SCREEN,URINE NEGATIVE (NEGATIVE); METHADONE SCREEN, URINE NEGATIVE (NEGATIVE); OPIATE SCREEN,URINE NEGATIVE (NEGATIVE); PHENCYCLIDINE SCREEN,URINE NEGATIVE (NEGATIVE)
[2023-06-10 20:30] VITALS: BP 115/58; PULSE 75; RESP 17; TEMP 97.4; O2SAT 96
[2023-06-10] MEDS: MELATONIN 5 MG TABLET PO SCH (20:49)
[2023-06-10] MEDS: QUEtiapine FUMARATE 100 MG TABLET PO SCH (20:49)
[2023-06-11 07:44] LABS: BASOPHILS % (AUTO) 0.4 % (0.0-2.0); EOSINOPHILS % (AUTO) 3.7 % (1.0-6.0); HEMATOCRIT 37.3 % (41-53); HEMOGLOBIN 12.4 g/dL (13.5-17.5); LYMPHOCYTES # (AUTO) 1.7 K/uL (1.0-4.8); LYMPHOCYTES % (AUTO) 39.7 % (22.0-44.0); MEAN CORPUSCULAR HEMOGLOBIN 30.2 pg (26.0-34.0); MEAN CORPUSCULAR HGB CONC 33.1 G/dL (31.0-37.0); MEAN CORPUSCULAR VOLUME 91 fL (80-100); MONOCYTES # (AUTO) 0.4 K/uL (0.1-1.0); MONOCYTES % (AUTO) 8.7 % (2.0-9.0); NEUTROPHILS % (AUTO) 47.5 % (40.0-70.0); PLATELET COUNT (AUTO) 78 K/uL (150-450); RED CELL DISTRIBUTION WIDTH 14.4 % (11.5-14.5)
[2023-06-11 07:56] LABS: HEMOGLOBIN A1C 7.1 % (3.8-5.6)
[2023-06-11 08:08] LABS: ALANINE AMINOTRANSFERASE 60 U/L (12-78); ALBUMIN 2.8 g/dL (3.4-5.0); ALKALINE PHOSPHATASE 81 U/L (46-116); ANION GAP 3 mmol/L (8-16); ASPARTATE AMINOTRANSFERASE 60 U/L (15-37); BILIRUBIN,TOTAL 0.4 mg/dL (0.1-1.0); CALCIUM, TOTAL 8.5 mg/dL (8.8-10.5); CARBON DIOXIDE 29 mmol/L (22-29); CHLORIDE 102 mmol/L (98-107); CHOL/HDL RATIO 2.2 (4.2-7.3); CHOLESTEROL 110 mg/dL (131-200); CREATININE 0.62 mg/dL (0.60-1.30); GLOMERULAR FILTR. RATE CALC > 60 mL/min (>60); GLUCOSE,RANDOM 89 mg/dL (70-110); HDL CHOLESTEROL 49 mg/dL (40-60); LDL CHOL (CALC.) 40 mg/dL (0-130); POTASSIUM 3.8 mmol/L (3.5-5.1); SODIUM SERUM 134 mmol/L (136-145); THYROID STIMULATING HORMONE 1.38 uIU/mL (0.36-3.74); TOTAL PROTEIN, SERUM 6.5 g/dL (6.4-8.2); TRIGLYCERIDES 104 mg/dL (15-150)
[2023-06-11 08:54] VITALS: BP 146/86; PULSE 146; RESP 18; TEMP 98.6; O2SAT 98
[2023-06-11] MEDS: DULoxetine HCL 30 MG CAPSULE PO SCH (08:57)
[2023-06-11] MEDS: AZITHROMYCIN 500 MG TABLET PO SCH (08:57)
[2023-06-11] MEDS: MELATONIN 5 MG TABLET PO SCH (20:33)
[2023-06-11] MEDS: QUEtiapine FUMARATE 100 MG TABLET PO SCH (20:33)
[2023-06-11 20:55] VITALS: BP 135/78; PULSE 79; RESP 18; TEMP 98.1
[2023-06-12 08:57] VITALS: BP 124/71; PULSE 87; RESP 18; TEMP 97.8; O2SAT 98
[2023-06-12] MEDS: DULoxetine HCL 30 MG CAPSULE PO SCH (10:30)
[2023-06-12] MEDS: AZITHROMYCIN 500 MG TABLET PO SCH (10:30)
[2023-06-12] MEDS: LORazepam 2 MG TABLET PO PRN (18:20)
[2023-06-12] MEDS: MELATONIN 5 MG TABLET PO SCH (20:44)
[2023-06-12] MEDS: QUEtiapine FUMARATE 100 MG TABLET PO SCH (20:44)
[2023-06-12 21:28] VITALS: BP 135/98; PULSE 75; RESP 16; TEMP 98.2; O2SAT 99
[2023-06-13] MEDS: DULoxetine HCL 30 MG CAPSULE PO SCH (08:32)
[2023-06-13] MEDS: AZITHROMYCIN 500 MG TABLET PO SCH (08:32)
[2023-06-13 08:46] VITALS: BP 110/71; PULSE 65; RESP 18; TEMP 98; O2SAT 100
[2023-06-13] MEDS: MELATONIN 5 MG TABLET PO SCH (21:21)
[2023-06-13] MEDS: ZOLPIDEM TARTRATE 10 MG TABLET PO PRN (21:21)
[2023-06-13] MEDS: LORazepam 2 MG TABLET PO PRN (21:23)
[2023-06-13] MEDS: QUEtiapine FUMARATE 100 MG TABLET PO SCH (21:23)
[2023-06-13 22:00] VITALS: BP 127/72; PULSE 71; RESP 18; TEMP 97.9; O2SAT 97
[2023-06-14 08:00] VITALS: BP 121/67; PULSE 68; RESP 17; TEMP 97.8; O2SAT 100
[2023-06-14] MEDS: AZITHROMYCIN 500 MG TABLET PO SCH (08:46)
[2023-06-14] MEDS: DULoxetine HCL 30 MG CAPSULE PO SCH (08:46)
[2023-06-14] MEDS: HALOPERIDOL 5 MG TABLET PO PRN (15:45)
[2023-06-14] MEDS: LORazepam 2 MG TABLET PO PRN (15:45)
[2023-06-14] MEDS: MELATONIN 5 MG TABLET PO SCH (20:15)
[2023-06-14] MEDS: QUEtiapine FUMARATE 100 MG TABLET PO SCH (20:15)
[2023-06-14 21:09] VITALS: BP 129/76; PULSE 73; RESP 18; TEMP 97.6
[2023-06-14] MEDS: ZOLPIDEM TARTRATE 10 MG TABLET PO PRN (21:20)
[2023-06-15] MEDS: DULoxetine HCL 30 MG CAPSULE PO SCH (08:20)
[2023-06-15 08:53] VITALS: RESP 17; TEMP 97.7
[2023-06-15] MEDS: LORazepam 2 MG TABLET PO PRN ×2 (13:39→19:40)
[2023-06-15] MEDS: HALOPERIDOL 5 MG TABLET PO PRN ×2 (13:39→19:40)
[2023-06-15] MEDS: MELATONIN 5 MG TABLET PO SCH (20:11)
[2023-06-15] MEDS: QUEtiapine FUMARATE 100 MG TABLET PO SCH (20:11)
[2023-06-15] MEDS: ZOLPIDEM TARTRATE 10 MG TABLET PO PRN (20:41)
[2023-06-15 21:43] VITALS: BP 128/76; PULSE 98; RESP 18; TEMP 98.1
[2023-06-16] MEDS: DULoxetine HCL 30 MG CAPSULE PO SCH (09:45)
[2023-06-16] MEDS: LORazepam 2 MG TABLET PO PRN (13:22)
[2023-06-16] MEDS: HALOPERIDOL 5 MG TABLET PO PRN (13:22)
[2023-06-16 14:26] VITALS: BP 119/71; PULSE 72; RESP 18; TEMP 97.7; O2SAT 98
[2023-06-16 20:51] VITALS: BP 119/66; PULSE 89; RESP 19; TEMP 97.7; O2SAT 98
[2023-06-16] MEDS: QUEtiapine FUMARATE 200 MG TABLET PO SCH (20:55)
[2023-06-16] MEDS: MELATONIN 5 MG TABLET PO SCH (20:55)
[2023-06-17] MEDS: DULoxetine HCL 30 MG CAPSULE PO SCH (08:47)
[2023-06-17 10:13] VITALS: BP 110/65; PULSE 79; RESP 18; TEMP 97.6; O2SAT 97
[2023-06-17] MEDS: HALOPERIDOL 5 MG TABLET PO PRN (12:47)
[2023-06-17] MEDS: LORazepam 2 MG TABLET PO PRN (12:47)
[2023-06-17 21:10] VITALS: BP 117/65; PULSE 66; RESP 18; TEMP 97.6; O2SAT 97
[2023-06-17] MEDS: MELATONIN 5 MG TABLET PO SCH (21:34)
[2023-06-17] MEDS: QUEtiapine FUMARATE 200 MG TABLET PO SCH (21:34)
[2023-06-18 08:05] VITALS: BP 111/60; PULSE 67; RESP 18; TEMP 98.3; O2SAT 100
[2023-06-18] MEDS: DULoxetine HCL 30 MG CAPSULE PO SCH (08:46)
[2023-06-18] MEDS: LORazepam 2 MG TABLET PO PRN ×2 (12:00→18:18)
[2023-06-18] MEDS: HALOPERIDOL 5 MG TABLET PO PRN ×2 (12:00→18:18)
[2023-06-18] MEDS: ZOLPIDEM TARTRATE 10 MG TABLET PO PRN (20:57)
[2023-06-18] MEDS: QUEtiapine FUMARATE 200 MG TABLET PO SCH (20:57)
[2023-06-18] MEDS: MELATONIN 5 MG TABLET PO SCH (20:57)
[2023-06-18 22:08] VITALS: BP 150/77; PULSE 80; RESP 16; TEMP 98.8; O2SAT 97
[2023-06-19 08:12] VITALS: BP 102/64; PULSE 86; RESP 18; TEMP 98.1
[2023-06-19] MEDS: DULoxetine HCL 30 MG CAPSULE PO SCH (08:39)
[2023-06-19] MEDS: HALOPERIDOL 5 MG TABLET PO PRN (13:37)
[2023-06-19] MEDS: LORazepam 2 MG TABLET PO PRN (13:37)
[2023-06-19] MEDS: MELATONIN 5 MG TABLET PO SCH (20:57)
[2023-06-19] MEDS: QUEtiapine FUMARATE 200 MG TABLET PO SCH (20:57)
[2023-06-19] MEDS: ZOLPIDEM TARTRATE 10 MG TABLET PO PRN (21:12)
[2023-06-19 22:39] VITALS: BP 115/57; PULSE 69; RESP 17; TEMP 97.2
[2023-06-20] MEDS ORDERED: DULO-114 PO (07:12)
[2023-06-20] MEDS ORDERED: QUET200T30 PO (07:12)
[2023-06-20] MEDS ORDERED: MELA5TAB40 PO (07:12)
[2023-06-20] MEDS: DULoxetine HCL 30 MG CAPSULE PO SCH (08:19)
[2023-06-20 09:12] VITALS: BP 115/75; PULSE 74; RESP 19; TEMP 97; O2SAT 99
== END 2023-06-20 14:41 | DRG 885 ==
LOC: EMS 14:09 → 3EI 06-10 00:57
PROVIDERS: ADMIT Psychiatry & Neurology Psychiatry; ATTEND Psychiatry & Neurology Psychiatry
DX: F25.0 Schizoaffective disorder, bipolar type (principal); J44.1 Chronic obstructive pulmonary disease with (acute) exacerbation; R45.851 Suicidal ideations; E78.5 Hyperlipidemia, unspecified; G40.909 Epilepsy, unspecified, not intractable, without status epilepticus; I10 Essential (primary) hypertension; G47.00 Insomnia, unspecified; F41.9 Anxiety disorder, unspecified; R07.89 Other chest pain; Z20.822 Contact with and (suspected) exposure to COVID-19; F19.10 Other psychoactive substance abuse, uncomplicated; Z79.899 Other long term (current) drug therapy; Z87.891 Personal history of nicotine dependence
CPT/HCPCS: 71045; 80053; 80061; 80307; 81003; 83036; 83605; 83690; 83880; 84443; 84484; 85025; 93005; 94640; 99285; G0480; J1200; J1630; J2060; Q9967; 36415-L1; 36415-TC; J7613